=== PATIENT | female | born 1985 | race Caucasian/White ===

== ENCOUNTER 2024-09-15 17:54 | Emergency (ER) | payer MEDICAID ==
[~2024-09-15] VITALS: Ht 157.5 cm; Wt 58.7 kg
[2024-09-15] MEDS ORDERED: ASCO100031 PO (19:23)
[2024-09-15] MEDS ORDERED: [UNRECOGNIZED DRUG - CODE] PO (19:23)
[2024-09-15] MEDS ORDERED: FLUO10CA28 PO (19:23)
[2024-09-15] MEDS ORDERED: FERR236T3 PO (19:23)
[2024-09-15 19:38] LABS: BASOPHILS % (AUTO) 0.4 % (0-1); EOSINOPHILS # (AUTO) 0.1 X10'3 (0-0.9); EOSINOPHILS % (AUTO) 1.1 % (0-6); HEMATOCRIT 33.8 % (35.0-45.0); HEMOGLOBIN 10.9 g/dl (12.0-16.0); LYMPHOCYTES # (AUTO) 2.5 X10'3 (1.1-4.8); LYMPHOCYTES % (AUTO) 19.9 % (21-51); MEAN CORPUSCULAR HGB CONC 32.2 g/dL (33.0-36.5); MEAN CORPUSCULAR VOLUME 74.6 FL (78-98); MEAN PLATELET VOLUME 7.7 FL (7.4-10.4); MONOCYTES # (AUTO) 1.2 X10'3 (0-0.9); MONOCYTES % (AUTO) 9.5 % (2-12); NEUTROPHILS # (AUTO) 8.8 X10'3 (1.8-7.7); NEUTROPHILS % (AUTO) 69.1 % (42-75); PLATELET COUNT 309 X10'3 (140-440); RED BLOOD COUNT 4.53 X10'6 (4.20-5.60); RED CELL DISTRIBUTION WIDTH 16.3 % (11.5-14.5); WHITE BLOOD COUNT 12.7 X10'3 (4.5-11.0)
[2024-09-15 19:55] LABS: ALANINE AMINOTRANSFERASE 38 U/L (12-78); ALBUMIN 3.9 G/DL (3.4-5.0); ALBUMIN/GLOBULIN RATIO 1.1 (1.1-1.5); ALKALINE PHOSPHATASE 98 IU/L (46-116); ANION GAP 9 (8-16); ASPARTATE AMINO TRANSFERASE 24 U/L (10-37); BILIRUBIN,TOTAL 0.4 MG/DL (0.1-1.0); BLOOD UREA NITROGEN 13 MG/DL (7-18); BUN/CREATININE RATIO 18.3 (10.0-20.0); CHLORIDE 103 MMOL/L (99-107); CREATININE 0.71 MG/DL (0.40-0.90); GLUCOSE 81 MG/DL (70-104); SODIUM 138 MMOL/L (135-145); TOTAL PROTEIN 7.3 G/DL (6.4-8.2); eCRCL 85 ML/MIN; eGFR > 90 ML/MIN
[2024-09-15 20:32] LABS: BILIRUBIN,URINE NEGATIVE (Neg); CLARITY,URINE CLEAR (Clear); COLOR,URINE YELLOW (Yellow); GLUCOSE, URINE NEGATIVE (Neg); KETONES,URINE 15 mg/dl (Neg); LEUKOCYTE ESTERASE ,URINE NEGATIVE (Neg); NITRITES, URINE NEGATIVE (Neg); OCCULT BLOOD,URINE MODERATE (Neg); PROTEIN,URINE NEGATIVE (Neg); UROBILINOGEN,URINE 0.2 E.U/dL (0.2-1.0)
[2024-09-15 20:38] LABS: UA COLLECTION TYPE CLN CATCH MIDSTREAM
[2024-09-15 20:40] LABS: BACTERIA,URINE 1+ /HPF (Neg); SQUAMOUS EPITHELIAL CELL,UR FEW /LPF (FEW)
[2024-09-15 20:41] LABS: RBC,URINE 20-50 /HPF (0-2); WBC,URINE 0-4 /HPF (0-4)
[2024-09-15 20:44] LABS: URINE AMPHETAMINE SCREEN NEGATIVE (Neg); URINE BARBITUATE SCREEN NEGATIVE (Neg); URINE BENZODIAZEPINES SCREEN NEGATIVE (Neg); URINE CANNABINOID SCREEN NEGATIVE (Neg); URINE COCAINE SCREEN NEGATIVE (Neg); URINE METHADONE SCREEN NEGATIVE (Neg); URINE OPIATE SCREEN NEGATIVE (Neg); URINE PHENCYCLIDINE SCREEN NEGATIVE (Neg)
[2024-09-15] MEDS: traZODone 50mg tablet PO STA (22:40)
[2024-09-16 05:13] VITALS: BP 145/63; PULSE 98; RESP 16; TEMP 98.6; O2SAT 99
[2024-09-16] MEDS ORDERED: Melatonin 3mg tablet PO SCH (21:00)
== END 2024-09-16 14:01 | disposition home or self-care (01) ==
LOC: ER 17:56
DX: R45.851 Suicidal ideations (principal); Z59.00 Homelessness unspecified; Z20.822 Contact with and (suspected) exposure to COVID-19
CPT/HCPCS: 36415; 80053; 80305; 81001; 85025; 87811; 99283

== ENCOUNTER 2024-10-22 08:58 | Emergency (ER) | payer MEDICAID ==
[~2024-10-22] VITALS: Ht 157.5 cm; Wt 59.4 kg
[~2024-10-22 08:58] MED LIST: ASCO100031 PO; FERR236T3 PO; FLUO10CA28 PO; [UNRECOGNIZED DRUG - CODE] PO
[2024-10-22 09:05] VITALS: BP 124/78; PULSE 78; RESP 16; O2SAT 100
[2024-10-22 11:38] LABS: URINE HCG NEGATIVE (NEG)
[2024-10-22 11:48] LABS: BILIRUBIN,URINE NEGATIVE (Neg); CLARITY,URINE CLEAR (Clear); COLOR,URINE YELLOW (Yellow); GLUCOSE, URINE NEGATIVE (Neg); KETONES,URINE NEGATIVE (Neg); LEUKOCYTE ESTERASE ,URINE MODERATE (Neg); NITRITES, URINE NEGATIVE (Neg); OCCULT BLOOD,URINE NEGATIVE (Neg); PH,URINE 7.5 (4.8-8.0); PROTEIN,URINE NEGATIVE (Neg); UROBILINOGEN,URINE 0.2 E.U/dL (0.2-1.0)
[2024-10-22 12:05] LABS: UA COLLECTION TYPE CLN CATCH MIDSTREAM
[2024-10-22 12:06] LABS: BACTERIA,URINE FEW /HPF (Neg); MUCUS STRANDS FEW /LPF (Neg); RBC,URINE 0-2 /HPF (0-2); SQUAMOUS EPITHELIAL CELL,UR FEW /LPF (FEW); WBC CLUMPS,URINE FEW /HPF (NEGATIVE); WBC,URINE 20-30 /HPF (0-4)
[2024-10-22] MEDS ORDERED: NITR100C6 PO (13:08)
[2024-10-22] MEDS ORDERED: METR-159 PO (13:08)
[2024-10-22 13:14] VITALS: TEMP 98
== END 2024-10-22 13:16 | disposition home or self-care (01) ==
LOC: ER 08:58
DX: N89.8 Other specified noninflammatory disorders of vagina (principal); N39.0 Urinary tract infection, site not specified
CPT/HCPCS: 81001; 81025; 87088; 99283

== ENCOUNTER 2024-10-25 12:06 | Emergency (ER) | payer MEDICAID ==
[~2024-10-25] VITALS: Ht 157.5 cm; Wt 60.5 kg
[~2024-10-25 12:06] MED LIST changes: +METR-159 PO; +NITR100C6 PO
[2024-10-25 12:22] VITALS: BP 107/62; PULSE 105; RESP 16; TEMP 98.7; O2SAT 100
[2024-10-25] MEDS ORDERED: KEN0.1O TOP (12:42)
== END 2024-10-25 13:02 | disposition home or self-care (01) ==
LOC: ER 12:07
DX: Z00.00 Encounter for general adult medical examination without abnormal findings (principal); Z76.0 Encounter for issue of repeat prescription; L20.82 Flexural eczema
CPT/HCPCS: 99281

== ENCOUNTER 2024-10-27 21:13 | Emergency (ER) | payer MEDICAID ==
[~2024-10-27] VITALS: Ht 157.5 cm; Wt 63.6 kg
[~2024-10-27 21:13] MED LIST changes: +KEN0.1O TOP
[2024-10-27] MEDS ORDERED: [UNRECOGNIZED DRUG - CODE] PO (23:27)
[2024-10-27] MEDS ORDERED: FLUO40CA10 PO (23:28)
[2024-10-27 23:44] VITALS: BP 120/70; PULSE 90; RESP 16; TEMP 98.6; O2SAT 99
== END 2024-10-27 23:46 | disposition home or self-care (01) ==
LOC: ER 21:15
DX: Z76.0 Encounter for issue of repeat prescription (principal)
CPT/HCPCS: 99281